=== PATIENT | male | born 1980 | race African-American/Black ===

== ENCOUNTER 2023-12-27 08:00 | Inpatient (IN) | payer OTHER ==
[2024-01-20 14:27] VITALS: BMI 34.7
[2024-01-24] MEDS ORDERED: BUPIVACAINE HCL/PF 0.25% (2.5MG/ML) 10 ML VIAL ONE ×2 (06:21→09:02)
[2024-01-24] MEDS ORDERED: cefOXitin SODIUM 2 GM VIAL (RESTRICTED TO ID) IVPB ONE (06:21)
[2024-01-24] MEDS ORDERED: INDOCYANINE GREEN 25 MG/10 ML VIAL IVPUSH ONE (06:21)
[2024-01-24] MEDS ORDERED: PROPOFOL 20 ML ONE (07:24)
[2024-01-24] MEDS ORDERED: ONDANSETRON 4 MG/2 ML VIAL ONE (07:24)
[2024-01-24] MEDS ORDERED: LIDOCAINE HCL/PF 2% SDV 5ML VIAL ONE (07:24)
[2024-01-24] MEDS ORDERED: DEXAMETHASONE SOD PHOSPHATE 4 MG/1 ML VIAL ONE (07:24)
[2024-01-24] MEDS ORDERED: MIDAZOLAM HCL 2 MG/2 ML SINGLE DOSE VIAL ONE (07:24)
[2024-01-24] MEDS ORDERED: SUCCINYLCHOLINE CHLORIDE 200 MG/10 ML SYRINGE ONE (07:24)
[2024-01-24] MEDS ORDERED: ROCURONIUM BROMIDE 50 MG/5 ML SYRINGE ONE ×3 (07:24→10:27)
[2024-01-24] MEDS: BUPIVACAINE HCL/PF 0.25% (2.5MG/ML) 10 ML VIAL IJ ONE (08:56)
[2024-01-24] MEDS ORDERED: HYDROmorphone HCl 2 MG/ML VIAL ONE (09:27)
[2024-01-24] MEDS ORDERED: TRANEXAMIC ACID 1000 MG/10 ML VIAL ONE (10:45)
[2024-01-24] MEDS ORDERED: PROPOFOL 40 ML ONE (12:43)
[2024-01-24] MEDS ORDERED: SUGAMMADEX SODIUM 200 MG/2 ML VIAL ONE (14:35)
[2024-01-24] MEDS ORDERED: HYDROmorphone HCL CARPU-JECT 2 MG/1 ML DISP.SYRIN ONE (15:29)
[2024-01-24] MEDS: HYDROmorphone HCl 2 MG/ML VIAL IVPB PRN (15:32)
[2024-01-24] MEDS: LABETALOL HCL 5 MG/1 ML (100MG/20 ML VIAL) IVPUSH ONE ×2 (16:43→17:15)
[2024-01-24] MEDS ORDERED: ACETAMINOPHEN INJECTION 100 ML ONE (16:49)
[2024-01-24] MEDS: ACETAMINOPHEN 1000 MG/100 ML BAG IVPB ONE ×2 (16:51→23:34)
[2024-01-24] MEDS: ACETAMINOPHEN 500 MG TABLET (FP) PO SCH (17:01)
[2024-01-24] MEDS ORDERED: oxyCODONE HCL 5 MG TABLET ONE (17:05)
[2024-01-24] MEDS: oxyCODONE HCL 5 MG TABLET PO ONE (17:06)
[2024-01-24] MEDS: LACTATED RINGERS SOLUTION 1,000 ML IV SCH (17:18)
[2024-01-24] MEDS: CEFOXITIN SODIUM 2 GM in DEXTROSE 5%-WATER 100 ML IVPB SCH (17:20)
[2024-01-24] MEDS: IBUPROFEN 600 MG TABLET (FP) PO SCH (18:39)
[2024-01-24] MEDS: ONDANSETRON 4 MG/2 ML VIAL IVPUSH PRN (20:56)
[2024-01-24] MEDS: HEPARIN NA (PORCINE) 5,000 UNITS/ML 1ML VIAL SQ SCH (23:34)
[2024-01-25] MEDS: CEFOXITIN SODIUM 2 GM in DEXTROSE 5%-WATER - 100 ML IVPB ONE (00:23)
[2024-01-25] MEDS: ENOXAPARIN NA (PORCINE) 40 MG/0.4 ML DISP.SYRIN SQ SCH (09:46)
[2024-01-25 11:10] LABS: BASO % 0.2 % (0-2.0); EOS % 0.1 % (0-4.5); HEMATOCRIT 40.9 % (35.4-49); HEMOGLOBIN 13.8 GM/dL (11.7-16.9); LYMPH % 19.1 % (8-40); MCH 30.3 pg (25.7-33.7); MCHC 33.9 g/dl (32.0-35.9); MEAN CELL VOLUME 89.5 fl (80-96); MEAN PLT VOLUME 8.3 fl (7.5-11.1); MONO % 9.9 % (3.8-10.2); NEUT % 70.7 % (42.8-82.8); PLATELET COUNT 228 10^3/uL (134-434); RBC 4.57 M/mm3 (4.00-5.60); RDW 13.8 % (11.9-15.9); WHITE BLOOD COUNT 9.1 K/mm3 (4.0-10.0)
[2024-01-25 11:35] LABS: POTASSIUM 4.1 mmol/L (3.5-5.1)
[2024-01-25 11:37] LABS: BLOOD UREA NITROGEN 11.4 mg/dL (7-18); MAGNESIUM 2.3 mg/dL (1.8-2.4)
[2024-01-25 11:40] LABS: CREATININE 1.1 mg/dL (0.55-1.3); PHOSPHOROUS 3.1 mg/dL (2.5-4.9)
[2024-01-25] MEDS: oxyCODONE HCL 5 MG TABLET PO PRN (12:09)
[2024-01-25] MEDS: NIFEdipine E.R. 30 MG TABLET PO SCH (14:19)
[2024-01-25] MEDS: hydrALAZINE HCL 10 MG TABLET PO ONE (21:38)
[2024-01-26 09:11] LABS: BASO % 0.3 % (0-2.0); EOS % 1.4 % (0-4.5); HEMATOCRIT 42.1 % (35.4-49); HEMOGLOBIN 14.4 GM/dL (11.7-16.9); LYMPH % 17.1 % (8-40); MCH 30.5 pg (25.7-33.7); MCHC 34.1 g/dl (32.0-35.9); MEAN CELL VOLUME 89.3 fl (80-96); MONO % 8.7 % (3.8-10.2); NEUT % 72.5 % (42.8-82.8); PLATELET COUNT 226 10^3/uL (134-434); RBC 4.72 M/mm3 (4.00-5.60); RDW 13.7 % (11.9-15.9); WHITE BLOOD COUNT 8.6 K/mm3 (4.0-10.0)
[2024-01-26] MEDS: amLODIPine BESYLATE 5 MG TABLET (FP) PO SCH (09:11)
[2024-01-26] MEDS: MULTIVITAMINS (DAILY MVI) TABLET (FP) PO SCH (09:11)
[2024-01-26 09:43] LABS: POTASSIUM 4.4 mmol/L (3.5-5.1)
[2024-01-26 09:55] LABS: BLOOD UREA NITROGEN 9.8 mg/dL (7-18)
[2024-01-26 09:56] LABS: CALCIUM 9.3 mg/dL (8.5-10.1)
[2024-01-26 09:57] LABS: MAGNESIUM 2.2 mg/dL (1.8-2.4)
[2024-01-26 10:00] LABS: PHOSPHOROUS 2.1 mg/dL (2.5-4.9)
[2024-01-26 11:29] VITALS: BP 146/100; PULSE 70; RESP 20; TEMP 98.2
== END 2024-01-26 13:11 | disposition home or self-care (01) | DRG 331 ==
LOC: J2C 01-24 04:08 → J8W 01-24 18:00
PROVIDERS: ADMIT Internal Medicine; ATTEND Nurse Practitioner Family
PROC: 0T9B80Z Drainage of Bladder with Drainage Device, Via Natural or Artificial Opening Endoscopic (ICD-10-PCS; 2024-01-24)
PROC: 0DTN4ZZ Resection of Sigmoid Colon, Percutaneous Endoscopic Approach (ICD-10-PCS; principal; 2024-01-24 07:30)
PROC: 8E0W4CZ Robotic Assisted Procedure of Trunk Region, Percutaneous Endoscopic Approach (ICD-10-PCS; 2024-01-24 07:30)
DX: K57.32 Diverticulitis of large intestine without perforation or abscess without bleeding (principal); I10 Essential (primary) hypertension
CPT/HCPCS: 36415; 80048; 83735; 84100; 85025; 86140; 86850; 86900; 86901; 88307-TC; 94010; 94760; J0131